=== PATIENT | female | born 1960 | race Two or more races ===

== ENCOUNTER 2022-07-27 09:25 | Outpatient (CLI) | payer OTHER | END 2022-07-27 09:32 | disposition home or self-care (01) | LOC: SONOGRAMA 09:25 | PROVIDERS: ATTEND Pathology Anatomic Pathology & Clinical Pathology | DX: D24.1 Benign neoplasm of right breast (principal); R92.8 Other abnormal and inconclusive findings on diagnostic imaging of breast; N60.11 Diffuse cystic mastopathy of right breast ==